=== PATIENT | male | born 1995 | race Caucasian/White ===

== ENCOUNTER 2025-03-23 14:33 | Emergency (ER) | payer OTHER ==
[~2025-03-23] VITALS: Ht 177.8 cm; Wt 57.0 kg
[2025-03-23 18:53] VITALS: BP 123/74; TEMP 98; O2SAT 99
== END 2025-03-23 18:55 | disposition home or self-care (01) ==
LOC: M ED 14:33
DX: M54.6 Pain in thoracic spine (principal)